=== PATIENT | male | born 1975 | race Caucasian/White ===

== ENCOUNTER 2019-04-21 17:25 | Emergency (ER) | payer SELFPAY ==
--- NOTE | 2019-04-21 18:14 | CR ---
[id number] RAD/RAD Foot Left 3V Min Exam: RAD Foot Left 3V Min Indication:PIECE OF METAL DROPPED ON FOOT. Comparison: No prior imaging for comparison. Discussion: Soft tissue edema in the foot. Lateral view demonstrates possible fractures along the dorsal aspect of the cuneiform bones as well as and metatarsal base. However these are not seen on the other projections. CT examination would be of benefit to better evaluate these findings. Impression: As above. Wilbur Roman MD 04/22/19 0959 Thank you for allowing us to participate in the care of your patient.
[2019-04-21] MEDS ORDERED: Acetaminophen/oxyCODONE 325-5 MG Tab PO ONE (18:18)
--- NOTE | 2019-04-21 18:53 | EDM.PDOC ---
ED HPI GENERAL MEDICAL PROBLEM - General Chief Complaint: Lower Extremity Injury/Pain Stated Complaint: FOOT Time Seen by Provider: 04/21/19 18:00 - History of Present Illness INITIAL COMMENTS - FREE TEXT/NARRATIVE: PT presents with swelling and pain to the left foot. Pt has steel fall on left foot x 2 days ago, today pain with ambulation and swelling. Left Foot Pain Score (Numeric/FACES): 5 Past Medical History - Past Health History Medical/Surgical History: Denies Medical/Surgical History Social & Family History - Tobacco Use Smoking Status *Q: Current Every Day Smoker Years of Tobacco use: 30 Packs/Tins Daily: 1 - Alcohol Use Days Per Week of Alcohol Use: 3 Number of Drinks Per Day: 10 Total Drinks Per Week: 30 - Recreational Drug Use Recreational Drug Use: No Review of Systems - Review of Systems Review Of Systems: See Below Constitutional: Reports: No Symptoms Eyes: Reports: No Symptoms Ears: Reports: No Symptoms Nose: Reports: No Symptoms Mouth/Throat: Reports: No Symptoms Respiratory: Reports: No Symptoms Cardiovascular: Reports: No Symptoms GI/Abdominal: Reports: No Symptoms Genitourinary: Reports: No Symptoms Musculoskeletal: Reports: Foot Pain Skin: Reports: No Symptoms Neurological: Reports: No Symptoms Psychiatric: Reports: No Symptoms ED EXAM, GENERAL - Physical Exam Exam: See Below Free Text/Narrative:: Multipal fractures noted in left foot from ct. Discussed with Dr. Avalos podiatry [facility]. States non weight bearing for the next 4 wks, then in a boot for 4 wks. Follow up with pcp for continued care. General Appearance: Alert, WD/WN Eye Exam: Bilateral Eye: PERRL Nose: Normal Inspection Throat/Mouth: Normal Inspection Head: Atraumatic, Normocephalic Respiratory/Chest: No Respiratory Distress, No Accessory Muscle Use Cardiovascular: Normal Peripheral Pulses Extremities: Other (left foot pain and swelling on the 1st metatarsal base area. ) Course - Vital Signs Last Recorded V/S: Last Vital Signs Temp 35.7 C 04/21/19 17:25 Pulse 102 H 04/21/19 17:25 Resp 18 04/21/19 17:25 BP 144/100 H 04/21/19 17:25 Pulse Ox 97 04/21/19 17:25 - Orders/Labs/Meds Meds: Medications Discontinued Medications Generic Name Dose Route Start Last Admin Trade Name Freq PRN Reason Stop Dose Admin Oxycodone/Acetaminophen 1 tab 04/21/19 18:18 04/21/19 18:25 Percocet 325-5 Mg PO 04/21/19 18:19 1 tab ONETIME ONE Administration Departure - Departure Time of Disposition: 19:59 Disposition: Home, Self-Care 01 Clinical Impression: Foot fracture, left, Metatarsal bone fracture - Discharge Information Instructions: Pain Medicine Instructions, [id number], Crutch Use, Adult Referrals: PCP,Not In Area [Primary Care Provider] - Forms: ED Department Discharge Additional Instructions: non weight bearing for the next 4 wks, then in a boot for 4 wks. Follow up with pcp for continued care.
--- NOTE | 2019-04-21 18:58 | CT ---
[id number] CT/CT Foot Left WO IV Exam: CT Foot Left WO IV Indication:SUSPECT FRACTURE. LEFT FOOT PAIN. RULE OUT FRACTURE Comparison: Radiograph from today. Discussion: Acute fractures at the bases of the 2nd and 4th metatarsals. 2nd metatarsal base fracture is mildly comminuted with multiple fracture lines extend into the Lisfranc articulation. One of the fracture lines extends to the attachment of the Lisfranc ligament. Fracture at the base of the 4th metatarsal is also intra-articular. No evidence of significant displacement or separation at the articular surface. Additionally there are mildly comminuted fractures of the middle and lateral cuneiform bones, both of which extend to the the adjacent naviculocuneiform articulations. No evidence of significant displacement are separation at the articular surfaces. Nondisplaced fracture along the plantar aspect of the medial cuneiform seen best on series 6 image 31. 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 Changes of osteophytosis are also seen in the hindfoot. Chronic fragmentation along the anterior tip of the medial malleolus consistent with sequela of a chronic deltoid avulsion. Plantar calcaneal spur. Achilles enthesopathy at its calcaneal attachment. Impression: Acute fractures centered on the Lisfranc articulation. Fractures include a comminuted fracture at the base of the 2nd metatarsal with at least one fracture line extending to near the attachment of the Lisfranc ligament. Orthopedic consultation recommended. Wilbur Roman MD 04/22/19 0959 Thank you for allowing us to participate in the care of your patient.
[2019-04-21] MEDS ORDERED: Take Home: Acetaminophen/HYDROcodone 325-5 MG, 5 Tab Pack PO ONE (20:01)
== END 2019-04-21 20:18 | disposition home or self-care (01) ==
LOC: EDBD 17:25 → VM.ED 17:25
DX: S92.322A Displaced fracture of second metatarsal bone, left foot, initial encounter for closed fracture (principal); F17.210 Nicotine dependence, cigarettes, uncomplicated; W19.XXXA Unspecified fall, initial encounter
CPT/HCPCS: 73630; 73700; 99284; A9270; 99283-GF